=== PATIENT | female | born 1985 | race Caucasian/White ===

== ENCOUNTER 2016-10-12 09:11 | Emergency (ER) | payer OTHER ==
[~2016-10-12] VITALS: Ht 147.3 cm; Wt 47.4 kg
[~2016-10-12 09:11] MED LIST: ADDERALL10 MG PO; AMPHETAMINE SAL10 MG PO; AMPHETAMINE SALT5 MG PO; CARBATROL-ER200 MG PO; CYCLOBENZAPRINE5 M1 PO; DESYREL100 MG PO; EFFEXOR XR150 MG PO; EFFEXOR75 MG PO; LYRICA50 MG PO; PERCOCET 5-3251 EACH PO; PROZAC10 M2 PO; TEGRETOL200 MG PO; TRAMADOL HCL50 MG PO; TRAZODONE HCL100 MG PO
[2016-10-12 09:45] LABS: HEMATOCRIT 37.4 % (36.0-46.0); MCH 27.7 PG (29.0-34.0); MCHC 32.4 G/DL (30.0-36.0); MCV 85.6 FL (83-99); MEAN PLAT.VOLUME 10.7 uM^3 (9.5-12.4); PLATELET COUNT 246 K/uL (156-360); RBC DIS.WIDTH-CV 13.2 % (11.8-14.6); RBC DIS.WIDTH-SD 41.2 % (39-53); RED BLOOD COUNT 4.37 M/uL (3.80-5.20); WHITE BLOOD COUNT 10.4 K/uL (4.1-10.2)
[2016-10-12 09:55] LABS: CHLORIDE 108 mEq/L (99-109); SODIUM 141 mEq/L (136-147)
[2016-10-12 09:58] LABS: GLUCOSE 79 mg/dL (70-99)
[2016-10-12 09:59] LABS: ANION GAP 9 MEQ/L (2-14); TOTAL BILIRUBIN 0.2 mg/dL (0.0-1.0)
[2016-10-12 10:01] LABS: ALKALINE PHOSPHATASE 49 IU/L (3-129); GFR ESTIMATE (CALCULATED) > 59 mL/min/
[2016-10-12 10:02] LABS: UREA NITROGEN (BUN) 19 mg/dL (9-23)
[2016-10-12 10:11] LABS: QUANTITATIVE HCG < 4.0 MIU/ML
[2016-10-12 11:47] LABS: ADD MIUA? YES; BILIRUBIN NEGATIVE; BLOOD NEGATIVE; COLOR YELLOW ((YELLOW)); GLUCOSE (STRIP) NEGATIVE; KETONES 20; LEUKOCYTES TRACE; NITRITE NEGATIVE; PROTEIN (STRIP) NEGATIVE; UROBILINOGEN 0.2 MG/DL (0.2-1.0)
[2016-10-12 11:55] LABS: BACTERIA RARE /HPF; EPITHELIAL CELLS 1+ /HPF; MUCUS TRACE /LPF; RED BLOOD CELLS 0-5 /HPF (0-5); UCUL ADDED? NO; WHITE BLOOD CELLS 0-5 /HPF (0-5)
[2016-10-12 12:17] LABS: SPECIFIC GRAVITY 1.057 (1.000-1.030)
[2016-10-12 15:32] LABS: C DIFF TOXIN NEGATIVE (NEGATIVE)
[2016-10-12 15:40] LABS: PROBE CHECK PASS; SPECIMEN PROCESSING CONTROL PASS
[2016-10-12] MEDS ORDERED: ALEVE220 MG PO (16:10)
[2016-10-12] MEDS ORDERED: ADVIL,NUPRIN,M200 MG PO (16:10)
[2016-10-12] MEDS ORDERED: FLAGYL500 MG PO (16:36)
[2016-10-12] MEDS ORDERED: CIPRO500 MG PO (16:36)
[2016-10-12] MEDS ORDERED: ZOFRAN ODT4 MG PO (16:36)
[2016-10-12] MEDS ORDERED: PERCOCET 5/31 TABLET PO (16:36)
[2016-10-12 16:45] VITALS: BP 104/71
== END 2016-10-12 16:53 | disposition home or self-care (01) ==
LOC: EME 09:11
PROVIDERS: Emergency Medicine
DX: K52.9 Noninfective gastroenteritis and colitis, unspecified (principal); F17.200 Nicotine dependence, unspecified, uncomplicated; Z88.0 Allergy status to penicillin
CPT/HCPCS: 74177; 80053; 81003; 84702; 85027; 87493; 87506; 99281; 99285; J0744; J3010; J7030; S0030